=== PATIENT | male | born 1990 | race African-American/Black ===

== ENCOUNTER 2016-11-12 14:08 | Emergency (ER) | payer OTHER ==
[~2016-11-12] VITALS: Ht 180.3 cm; Wt 82.0 kg
[2016-11-12 14:08] VITALS: BP 141/76; PULSE 67; RESP 16; TEMP 98.2; O2SAT 99
[~2016-11-12 14:08] MED LIST: ALBU1AER INH
[2016-11-12] MEDS ORDERED: ACETAMINOPHEN/HYDROcodone 325 MG/5 MG TAB PO ONE (14:15)
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
[2016-11-12] MEDS ORDERED: ROBA750T PO (15:25)
[2016-11-12] MEDS ORDERED: DICL75TA PO (15:25)
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
--- NOTE | 2016-11-12 16:57 | ED.CB ---
ED Call Back Communication about 10 minutes after patient left lumbar x-ray resulted with possible acute disc herniation without fracture, patient was gone at this time and I attempted to call his phone and called out to triage without answer. Report will be given to staff to attempt to keep getting hold of patient so he can follow this. Priscila Garza MD Nov 12, 2016 16:57
== END 2016-11-12 16:43 | disposition home or self-care (01) ==
LOC: NEDAMB 14:08
DX: S13.4XXA Sprain of ligaments of cervical spine, initial encounter (principal); S39.012A Strain of muscle, fascia and tendon of lower back, initial encounter; R51 Headache; V49.49XA Driver injured in collision with other motor vehicles in traffic accident, initial encounter; Y93.89 Activity, other specified; Y92.410 Unspecified street and highway as the place of occurrence of the external cause
CPT/HCPCS: 70450; 72072; 72110; 72125